=== PATIENT | female | born 1955 | race Caucasian/White ===

== ENCOUNTER 2020-06-12 12:56 | Outpatient (RCR) | payer MEDICAID, SELFPAY | END 2020-07-28 16:28 | disposition home or self-care (01) | LOC: HO.WCC 12:56 | PROVIDERS: PCP Internal Medicine; Visit Provider Physician Assistant Surgical | DX: E11.621 Type 2 diabetes mellitus with foot ulcer (principal); E11.69 Type 2 diabetes mellitus with other specified complication; E11.51 Type 2 diabetes mellitus with diabetic peripheral angiopathy without gangrene; L97.516 Non-pressure chronic ulcer of other part of right foot with bone involvement without evidence of necrosis; M86.171 Other acute osteomyelitis, right ankle and foot; Z79.4 Long term (current) use of insulin; Z79.899 Other long term (current) drug therapy; Z72.0 Tobacco use | CPT/HCPCS: 97597 ==

== ENCOUNTER → 2020-09-16 13:29 | Outpatient (BNVA) | payer MEDICAID, SELFPAY | PROVIDERS: PCP Internal Medicine; Visit Provider Internal Medicine | DX: I36.1 Nonrheumatic tricuspid (valve) insufficiency (principal); I50.812 Chronic right heart failure; F17.200 Nicotine dependence, unspecified, uncomplicated | CPT/HCPCS: 93005; 99212 ==

== ENCOUNTER → 2020-12-01 11:23 | Outpatient (BNVA) | payer MEDICAID, SELFPAY | PROVIDERS: PCP Internal Medicine; Referring Provider Internal Medicine; Visit Provider Internal Medicine Endocrinology, Diabetes & Metabolism ==

== ENCOUNTER 2020-12-30 13:34 | Outpatient (REF) | payer MEDICAID, SELFPAY ==
--- NOTE | ~2020-12-30 | US_ITS ---
EXAMINATION: US THYROID CLINICAL INFORMATION: Nontoxic multinodular goiter. COMPARISON: Ultrasound soft tissue head/neck thyroid dated 01/11/2018. TECHNIQUE: Linear transducer grayscale and color Doppler examination with attention to the region of the thyroid. FINDINGS: SIZE: Measurements of the thyroid lobes and nodules are given in sagittal, anteroposterior and transverse dimensions respectively. Right Thyroid Lobe: 4.0 x 1.5 x 1.5 cm, volume 4.7 mL. Previously 4.4 x 2.1 x 1.9 cm, volume 9.2 mL. Parenchyma: The gland echotexture is homogeneous. Thyroid vascularity is normal. Left Thyroid Lobe: 3.8 x 1.9 x 1.5 cm, volume 5.9 mL. Previously 4.6 x 2.6 x 2.0 cm, volume 12.7 mL. Parenchyma: The gland echotexture is homogeneous. Thyroid vascularity is normal. Isthmus: 0.3 cm in maximum AP dimension. Previously 0.5 cm. Estimated total number of nodules greater than or equal to 1 cm: 2. [employer] nodules are described as follows: 1. Location: Left inferior. Size: 1.5 x 1.4 x 1.3 cm, volume 1.4 mL. Previously: 1.8 x 1.6 x 1.7 cm, volume 2.6 mL. Nodule characteristics: Composition: Solid (2). Echogenicity: Hypoechoic (2). Shape: Not taller than wide (0). Margins: Smooth (0). Echogenic Foci: None (0). ACR TI-RADS total points: 4 ACR TI-RADS category: 4 Significant change in size (>/= 20% in 2 dimensions and minimal increase of 2 mm or 50% or greater increase in volume): No increase/decrease in size Change in features: No Change in ACR TI-RADS risk category: No 2. Location: Left mid. Size: 1.5 x 1.2 x 1.0 cm, volume 0.9 mL. Previously: 1.4 x 1.1 x 1.2 cm, volume 1.0 mL. Nodule characteristics: Composition: Solid (2). Echogenicity: Isoechoic (1). Shape: Not taller than wide (0). Margins: Smooth (0). Echogenic Foci: None (0). ACR TI-RADS total points: 3 ACR TI-RADS category: 3 Significant change in size (>/= 20% in 2 dimensions and minimal increase of 2 mm or 50% or greater increase in volume): No Change in features: Appears slightly more solid. Change in ACR TI-RADS risk category: No 3. Location: Left inferior. Size: 0.6 x 0.4 x 0.4 cm, volume 0.05 mL. Previously: Not seen on the previous study. Nodule characteristics: Composition: Solid (2). Echogenicity: Isoechoic (1). Shape: Not taller than wide (0). Margins: Smooth (0). Echogenic Foci: None (0). ACR TI-RADS total points: 3 ACR TI-RADS category: 3 NODES: No lymphadenopathy is seen in the tissue surrounding the thyroid gland. US/US thyroid IMPRESSION: 3 left thyroid nodules. One nodule appears decreased in size, one nodule is unchanged and there is a small subcentimeter newly appreciated nodule. ACR TI-RADS RECOMMENDATION REFERENCE: Ultrasound-guided fine-needle aspiration, followup ultrasound, no further follow up. * TR1 (0 point) and TR 2 (2 points): No FNA or follow up * TR3 (3 points): FNA if more than or equal to 2.5 cm in maximum dimension, followup ultrasound in 1, 3 and 5 years if 1.5 to 2.4 cm in maximum dimension. * TR4 (4-6 points): FNA if more than or equal to 1.5 cm in maximum dimension, followup ultrasound in 1, 2, 3 and 5 years if 1 to 1.4 cm in maximum dimension. * TR5 (more than or equal to 7 points): FNA if more than or equal to 1 cm in maximum dimension, followup ultrasound every year for 5 years if 0.5 to 0.9 cm in maximum dimension. * TR3, TR4 or TR5 nodules that are below the size threshold for follow up receive no follow up.
== END 2020-12-30 13:35 | disposition home or self-care (01) ==
LOC: HO.US 13:34
PROVIDERS: Visit Provider Internal Medicine Endocrinology, Diabetes & Metabolism
DX: E04.2 Nontoxic multinodular goiter (principal)
CPT/HCPCS: 76536

== ENCOUNTER 2021-01-27 13:21 | Outpatient (REF) | payer MEDICAID, SELFPAY ==
--- NOTE | ~2021-01-27 | MM_ITS ---
EXAMINATION: MM DIAGNOSTIC DIGITAL BREAST TOMOSYNTHESIS, BILATERAL CLINICAL INFORMATION: Due for yearly. Also follow-up probable benign calcifications upper outer left breast. No known family history breast cancer. The lifetime risk of breast cancer based on the Tyrer-Cuzick Model is 4%. COMPARISON: Mammography: 01/07/2020, 07/11/2019, 12/24/2018, 11/15/2018 (BI-RADS 0), 11/06/2017 TECHNIQUE: Digital breast tomosynthesis is performed in both the craniocaudal and mediolateral oblique views along with computer-aided detection (CAD). Synthesized 2D images are generated from the tomosynthesis. Additional magnification views left breast are obtained in the CC x2 and ML projections. FINDINGS: The breasts are heterogeneously dense, which may obscure small masses (ACR BI-RADS breast composition Category c). Parenchymal pattern is similar to prior studies. There is no developing density or significant mass or architectural abnormality. There are scattered calcifications again seen in each breast, more numerous on the left. The axilla and skin contours are unremarkable. The left breast calcifications for follow-up mid upper outer quadrant appear similar to prior diagnostic exam. There are new regional calcifications mid inner left breast for which additional extended follow-up surveillance will be performed to also included the upper outer left breast at follow-up. Results are provided to the patient at time of visit by the technologist. MM/MM tomosynthesis diagnostic BI IMPRESSION: 1. Left: Calcifications upper outer left breast are without significant change. There are some new similar appearing probable benign regional calcifications mid inner left breast. 2. Right: No mammographic evidence of malignancy. ASSESSMENT: BI-RADS 3: Probably Benign RECOMMENDATION: Diagnostic left mammography in 6 months. This patient's information was entered into a reminder system with a target due date for their next mammogram.
== END 2021-01-27 13:22 | disposition home or self-care (01) ==
LOC: HO.MAMMO 13:21
PROVIDERS: Visit Provider Internal Medicine
DX: R92.1 Mammographic calcification found on diagnostic imaging of breast (principal)
CPT/HCPCS: 77062; 77066

== ENCOUNTER → 2021-04-19 13:19 | Outpatient (REF) | payer MEDICARE, MEDICAID, SELFPAY ==
--- NOTE | 2021-04-19 13:22 | CA_ITS ---
Transthoracic Echocardiogram Patient (Last, First, Middle): Cassidy Gloria, Gender: Female Date of : 1955 Age: 66 Procedure Date: 04/19/2021 Procedure Type: Transthoracic Echocardiogram Location: OP Height: 167.64 cm Weight: 65.77 kg BSA: 1.74 m2 Heart Rate: bpm BP: 128 / 70 mmHg [employer] Teacher: KELLEE Referring MD: Trav Carrera MD Symptoms: I36.1 - Nonrheumatic tricuspid (valve) insufficiency Study Quality: Fair ECG Rhythm: Sinus Conclusions: - The left ventricular systolic function is normal. The calculated ejection fraction is 69% by biplane method. - The basal inferior segment is hypokinetic. - Nonspecific thickening at tricuspid chord; could be from prior endocarditis. - There is mild tricuspid valve regurgitation. Findings Left Ventricle Normal left ventricular cavity size. There is normal left ventricular wall thickness. The left ventricular systolic function is normal. The calculated ejection fraction is 69% by biplane method. There is no evidence of regional wall motion abnormalities. Diastolic function is normal for age. Wall Motion Rest Echo Findings The basal inferior segment is hypokinetic. Right Ventricle Normal right ventricular cavity size. There is normal right ventricular systolic function. RV basal diameter 4cm. TAPSE 1.83. Atria The left atrium is normal in size. The right atrium is normal in size. Aortic Valve There is a normal trileaflet aortic valve. There is no aortic valve stenosis. There is no aortic valve regurgitation. Mitral Valve There is mild anterior mitral leaflet thickening. There is no mitral valve regurgitation. There is no mitral valve stenosis. Pulmonic Valve The pulmonic valve was not well visualized. Tricuspid Valve There is mild tricuspid valve regurgitation. The pulmonary artery systolic pressure is normal. Nonspecific thickening at tricuspid chord; could be from prior endocarditis. Great Vessels The aortic annulus, sinuses of valsalva, and asc aorta are normal in size. Venous The inferior vena cava is normal in size and collapses greater than 50% with inspiration. Pericardium/Pleural There is no evidence of pericardial effusion. Prior Study Comparison Changes noted compared to prior study dated: 10/22/2019. Improvement in tricuspid regurgitation and right ventricular size. Measurements 2D Linear Measurements IVSd: 1.04 0.6-0.9/0.6-1.0 cm LVIDd: 4.05 3.9-5.3/4.2-5.9 cm LVIDd Index: 2.33 2.4-3.2/2.2-3.1 cm/m2 LVIDs: 2.69 2.0-3.6 cm LVPWd: 1.13 0.7-1.1 cm Ao Root: 3.40 2.1-3.5 cm LA Diam: 3.60 2.7-3.8/3.0-4.0 cm LAIDs Index: 2.07 1.5-2.3 cm/m2 LV Mass: 181.18 67-162/88-224 g LV Mass Index: 104.13 43-95/49-115 g/m2 LVOT Diam: 2.00 3.0+(-)1.3 cm 2D Systolic Function EF 4C: 70.20 >55% EF 2C: 65.80 >55% EF BiP: 68.70 >55% Mitral Valve MV Pk E: 0.50 MV PK A: 0.58 MV Decel Time: 489.00 E/A: 0.90 E'Lateral: 10.20 E'Medial: 6.64 E/E' Med: 7.60 E/E' Lat: 4.90 PHT: 143.00 MVA PHT: 1.54 Decel Amelia: 1.03 Aortic Valve AoV Pk Kyle: 1.16 AoV Mn Kyle: 0.85 AoV VTI: 0.26 AoV Pk Grad: 5.00 Aov Mn Grad: 3.00 FABIÁN Cont.VTI: 3.04 LVOT LVOT Pk Kyle: 1.17 LVOT Mn Kyle: 0.75 LVOT VTI: 0.26 LVOT Pk Grad: 5.00 LVOT Mn Grad: 3.00 LVOT Diam: 2.00 LVOT Area: 3.14 Diastolic Function MV Pk E: 0.50 MV Pk A: 0.58 E/A: 0.90 E'Medial: 6.64 E/E' Med: 7.60 E' Laterial: 10.20 E/E' Lat: 4.90 Right Ventricle TAPSE (mm): 1.83 Tricuspid Valve TR Pk Kyle: 2.57 TR Pk Grad: 26.00 RA Press: 3.00 RVSP: 29.00 Great Vessels Aorta Ao Root-2D: 3.40 2.0-3.7 cm Ao Asc: 3.50 2.1-3.4 cm Ao Arch: 2.40 Updated in Other Vendor System with Status of Final Trav Carrera MD electronically signed on 04/20/2021 12:55:41 PM with status of Final
== END ==
LOC: HO.CARD 13:19
PROVIDERS: Visit Provider Internal Medicine
DX: I35.1 Nonrheumatic aortic (valve) insufficiency (principal)
CPT/HCPCS: 93306

== ENCOUNTER → 2021-05-03 13:59 | Outpatient (BNVA) | payer MEDICARE, MEDICAID, SELFPAY | PROVIDERS: PCP Internal Medicine; Referring Provider Internal Medicine; Visit Provider Internal Medicine | DX: I36.1 Nonrheumatic tricuspid (valve) insufficiency (principal); I50.812 Chronic right heart failure; F17.200 Nicotine dependence, unspecified, uncomplicated | CPT/HCPCS: 99212 ==

== ENCOUNTER 2021-08-20 12:20 | Outpatient (REF) | payer MEDICARE, SELFPAY ==
--- NOTE | ~2021-08-20 | MM_ITS ---
EXAMINATION: MM DIAGNOSTIC DIGITAL BREAST TOMOSYNTHESIS, LEFT CLINICAL INFORMATION: Six-month follow-up left breast calcifications. The lifetime risk of breast cancer based on the Tyrer-Cuzick Model is 5.9%. COMPARISON: Mammography: January 27, 2021 and studies dating back to June 24, 2014 TECHNIQUE: Digital breast tomosynthesis is performed in both the craniocaudal and mediolateral oblique views along with computer-aided detection (CAD). Synthesized 2D images are generated from the tomosynthesis. Spot magnification views in craniocaudal and 90 degree mediolateral views of the left breast also performed. FINDINGS: The breasts are heterogeneously dense, which may obscure small masses (ACR BI-RADS breast composition Category c). There is a stable parenchymal pattern within the left breast with no new abnormal dominant mass or suspicious grouping of calcifications. Calcifications about the upper outer aspect of the left breast have been stable for 2 years. Results are provided to the patient at time of visit by the technologist. MM/MM tomosynthesis diagnostic LT IMPRESSION: There are no significant changes from prior study. ASSESSMENT: BI-RADS 2: Benign RECOMMENDATION: Routine annual mammography screening, due in 6 months. This patient's information was entered into a reminder system with a target due date for their next mammogram.
== END 2021-08-20 12:21 | disposition home or self-care (01) ==
LOC: HO.MAMMO 12:20
PROVIDERS: Visit Provider Internal Medicine
DX: R92.1 Mammographic calcification found on diagnostic imaging of breast (principal)
CPT/HCPCS: 77061; 77065